=== PATIENT | male | born 1965 | race Caucasian/White ===

== ENCOUNTER 2018-02-02 16:37 | Emergency (ER) | payer OTHER ==
[~2018-02-02] VITALS: Ht 172.7 cm; Wt 90.3 kg
[2018-02-02] MEDS ORDERED: LISINOPRIL10 MG PO (16:51)
[2018-02-02] MEDS ORDERED: ACYCLOVIR 400400 MG PO (16:51)
[2018-02-02 16:59] LABS: URINE BILIRUBIN NEGATIVE (Negative); URINE BLOOD NEGATIVE (Negative); URINE CLARITY CLEAR; URINE COLOR YELLOW; URINE GLUCOSE-RANDOM NEGATIVE (Negative); URINE KETONES NEGATIVE (Negative); URINE LEUKOCYTES-REFLEX NEGATIVE (Negative); URINE NITRITE-REFLEX NEGATIVE (Negative); URINE PROTEIN NEGATIVE (Negative); URINE SPECIFIC GRAVITY 1.025 (1.005-1.030); URINE UROBILINOGEN 0.2 E.U./dl (0.2-1.0)
[2018-02-02 17:09] LABS: ABSOLUTE BASOPHILS 0.1 thou/uL (0.0-0.2); ABSOLUTE EOSINOPHILS 0.2 thou/uL (0.0-0.7); ABSOLUTE LYMPHOCYTES 2.5 thou/uL (0.8-5.3); ABSOLUTE MONOCYTES 1.2 thou/uL (0.0-1.2); ABSOLUTE NEUTROPHILS 11.7 thou/uL (1.6-8.1); BASOPHILS 0.7 %; EOSINOPHILS 1.1 %; HEMOGLOBIN 15.2 gm/dL (14.0-18.0); LYMPHOCYTES 15.7 %; MCH 29.3 pg (26.0-34.0); MCHC 33.8 g/dL (28.0-37.0); MCV 86.8 fL (80.0-100.0); MONOCYTES 7.8 %; MPV 8.4 fl. (7.2-11.1); NUCLEATED RBCS 0 /100WBC; PLATELET COUNT* 297 thou/uL (150-400); POLYS 74.7 %; RBC 5.19 mil/uL (4.50-6.00); RDW-CV 12.6 % (10.5-14.5); WBC 15.6 thou/uL (4.0-11.0)
[2018-02-02 17:17] LABS: ANION GAP 8 mmol/L (7-16); BUN 14 mg/dL (7-18); CALCIUM 8.9 mg/dL (8.5-10.1); CHLORIDE 101 mmol/L (98-107); CO2 28 mmol/L (21-32); CREATININE 1.1 mg/dL (0.6-1.3); GLUCOSE 99 mg/dL (70-99); SODIUM 137 mmol/L (136-145)
[2018-02-02 17:32] LABS: ALKALINE PHOSPHATASE 60 U/L (46-116); LIPASE 152 U/L (73-393); SGOT 15 U/L (15-37); SGPT 27 U/L (30-65); TOTAL BILIRUBIN 0.5 mg/dL (<0.1-1.0); TOTAL PROTEIN 7.7 g/dL (6.4-8.2); TROPONIN-I LEVEL <0.06 ng/mL (<0.06)
[2018-02-02] MEDS ORDERED: MIRALAX17 GM PO (18:16)
[2018-02-02] MEDS ORDERED: HYDROCODONE-AP1 EAC6 PO (18:16)
[2018-02-02 18:24] VITALS: BP 140/74
--- NOTE | 2018-02-03 17:25 | EKG ---
[place] [address] ELECTROCARDIOGRAM REPORT Name: OLEGARIO ZAMORANO Room: [facility]#: [id number] Admission: 02/02/18 Attend Phys: Discharge: 02/02/18 Date of : 69 Report #: [id number] THIS REPORT FOR: //name// [facility] Test Date: 2018-02-02 Test Time: 16:56:49 Pat Name: OLEGARIO ZAMORANO Department: Room: Gender: M Gis Physical Scientist: Venkata WILLIS : 1965 Requested By: Tiffanie Gallo Order Number: [id number] MD: Monty Langford Measurements Intervals Jackson Rate: 59 P: 9 TN: 145 QRS: 9 QRSD: 88 T: 26 QT: 403 QTc: 400 Interpretive Statements Sinus rhythm Abnormal R-wave progression, early transition Baseline wander in lead(s) V1 No previous ECG available for comparison Electronically Signed On 02-03-2018 17:25:12 CDT by Monty Langford [email or web address] <ELECTRONICALLY SIGNED> By: Monty Langford MD, [facility] 02/03/18 1725 [id number] [id number] Monty Langford MD, FAC /EPI
== END 2018-02-02 18:24 | disposition home or self-care (01) ==
LOC: M.ERS 16:37
PROVIDERS: Physician Assistant
DX: R10.12 Left upper quadrant pain (principal); R10.13 Epigastric pain; I10 Essential (primary) hypertension; Z90.89 Acquired absence of other organs; Z88.5 Allergy status to narcotic agent

== ENCOUNTER → 2018-08-16 | Outpatient (CLI) | payer OTHER ==
[~2018-08-16] MED LIST: ACYCLOVIR 400400 MG PO; HYDROCODONE-AP1 EAC6 PO; LISINOPRIL10 MG PO; MIRALAX17 GM PO
[2018-08-16 09:55] LABS: CHOLESTEROL 314 mg/dL (<200); HDL CHOLESTEROL 49 mg/dL (>40); LDL CHOLESTEROL 240 mg/dL (<100); TC:HDL 6.4 Ratio (Not establshd); TRIGLYCERIDE 129 mg/dL (<150); VLDL 26 mg/dL (<40)
[2018-08-16 09:57] LABS: SERUM ASSESSMENT Clear
== END ==
LOC: M.LAB 09:30
PROVIDERS: Internal Medicine Cardiovascular Disease
DX: E78.2 Mixed hyperlipidemia (principal)

== ENCOUNTER → 2018-09-25 | Outpatient (CLI) | payer OTHER | LOC: M.ULTRA 09-18 16:11 | DX: K76.0 Fatty (change of) liver, not elsewhere classified (principal); I25.10 Atherosclerotic heart disease of native coronary artery without angina pectoris ==

== ENCOUNTER → 2018-10-01 | Outpatient (CLI) | payer OTHER ==
--- NOTE | 2018-10-01 16:01 | CARDNUC ---
[place] [address] CARDIAC NUCLEAR IMAGING REPORT Name: LONAOLEGARIO NAVARRETE Room: [facility]#: [id number] Admission: 10/01/18 Attend Phys: Monty Langford, Discharge: Date of : 69 Date of Service: 10/01/18 1600 Report #: [id number] THIS REPORT FOR: //name// APPROVED REPORT Study performed: 10/01/2018 07:45:00 Indication: Calcium Score, Palpitations, PVC's, SOA, CAD. Patient Location: Out-Patient Stress Tech: Angi Malloy Stress Nurse: Miri Hurtado RN Ht: 5 ft 8 in Wt: 195 lbs BSA: 2.02 m2 BMI: 29.64 Medical History Medical History: SOB, Palpitations, PVC's, , Carotid artery disease, HTN, Former Smoker, Hyperlipidemia Medications: Lisinopril, ASA 81 mg, Lipitor Allergies: Codeine Cardiac Risk Factors: Age, HTN, Hyperlipidemia, SOB, Past Smoker Previous Cardiac Procedures: None Pretest Chest Pain Characteristics: None Exercise History: Physically active Physical Disabilities: None Meds Held (24 hrs): None Resting Data Rest SPECT myocardial perfusion imaging was performed in supine position 30 minutes following the intravenous injection of 10.7 mCi of Tc-99m Sestamibi. Time of rest injection: 08:00 The images were gated to evaluate regional wall motion and calculate left ventricular ejection fraction. Administration Route: IV Administration Site: Left Hand Exercise Stress At peak stress, the patient was injected intravenously with 32.4mCi of Tc-99m Sestamibi. Time of stress injection: 10:10 Administration Route: IV Administration Site: Left Hand Heart Rate at time of stress injection: 169 [place] [address] CARDIAC NUCLEAR IMAGING REPORT Name: OLEGARIO ZAMORANO Room: [facility]#: [id number] Admission: 10/01/18 Attend Phys: Monty Langford, Discharge: Date of : 69 Date of Service: 10/01/18 [facility] Report #: [id number] Gated Stress SPECT was performed 30 minutes after stress injection. The images were gated to evaluate regional wall motion and calculate left ventricular ejection fraction. Prone imaging was performed. Stress Test Details Stress Test: Exercise stress testing was performed using a Ron protocol. HR Max Heart Rate (APMHR): 169 bpm Resting HR: 56 bpm Target HR (85% APMHR): 143 bpm Max HR Achieved: 169 bpm % of APMHR: 100 Recovery HR: 98 bpm HR response to stress: Normal HR response to stress BP Resting BP: 132/91 mmHg Max BP: 210/101 mmHg Recovery BP: 172/95 mmHg BP response to stress: Normal blood pressure response to stress. ECG Resting ECG: Sinus Rhythm Stress ECG: Sinus Rhythm ST Change: None Arrhythmia: None Recovery ECG: Sinus Rhythm Recovery ST Change: None Recovery Arrhythmia: None Clinical Reason for Termination: Target HR achieved, , Patient Request Stress Symptoms: Leg Fatigue, Dyspnea Exercise duration: 10 min 00 sec Exercise capacity: 11.79 METs Overall Exercise Capacity for Age: Normal Nurse Comments 53 year old male presented for Ron protocol Nuc Med test. Patient tolerated treadmill well and achieved age related target heart rate. Recovery unremarkable. Patient was escorted by staff to nuclear medicine for images. Patient was stable [place] [address] CARDIAC NUCLEAR IMAGING REPORT Name: OLEGARIO ZAMORANO Room: [facility]#: [id number] Admission: 10/01/18 Attend Phys: Monty Langford, Discharge: Date of : 69 Date of Service: 10/01/18 1600 Report #: [id number] Stress ECG Conclusion negative ecg portion Study Quality Study: Good Artifact: No artifact Perfusion Review of rest data reveals normal perfusion, without perfusion defects.Imaging obtained following exercise stress demonstrate a similar, uniform uptake of tracer without defects. Prone imaging was normal. LVEDV is normal.No segental wall motion abnormality seen. Wall Motion normal all segments Nuclear Conclusion ECG Findings: negative for ischemia Clinical Findings: negative for ischemia Nuclear Findings: negative for ischemia Exercise Capacity: normal Left Ventricular Function: normal Risk Study: low Negative exercise perfusion nuclear stress test for ischemia or infarct.Normal LV systolic function. <Conclusion> negative ecg portion <ELECTRONICALLY SIGNED> By: Randall Gan MD, FACC 10/01/181599 99 99 Randall Gan MD, FACC /INF
== END ==
LOC: M.NUC 09-12 08:17 → M.CRD 08:00 → M.NUC 08:00
DX: I25.10 Atherosclerotic heart disease of native coronary artery without angina pectoris (principal); I10 Essential (primary) hypertension; E78.5 Hyperlipidemia, unspecified; Z87.891 Personal history of nicotine dependence

== ENCOUNTER → 2021-01-27 | Outpatient (CLI) | payer OTHER ==
[2021-01-27 17:31] LABS: CHOLESTEROL 181 mg/dL (<200); HDL CHOLESTEROL 53 mg/dL (>40); LDL CHOLESTEROL 106 mg/dL (<100); TC:HDL 3.4 Ratio (Not establshd); TRIGLYCERIDE 110 mg/dL (<150); VLDL 22 mg/dL (<40)
[2021-01-27 17:32] LABS: SERUM ASSESSMENT Clear
== END ==
LOC: M.LAB 16:16
PROVIDERS: ATTEND Internal Medicine Cardiovascular Disease
DX: I25.10 Atherosclerotic heart disease of native coronary artery without angina pectoris (principal); E78.2 Mixed hyperlipidemia